=== PATIENT | male | born 1945 | race Caucasian/White ===

== ENCOUNTER → 2017-01-04 | Outpatient (REF) | payer OTHER ==
[~2017-01-04] MED LIST: ASPI-586 PO; ATOR80TA PO; CTLP20T PO
[2017-01-04 11:25] LABS: BASOPHILS % (AUTO) 0 % (0-2); EOSINOPHILS # (AUTO) 0.1 10^3uL; EOSINOPHILS % (AUTO) 1 % (0-4); LYMPHOCYTES # (AUTO) 2.4 X10^3; MEAN CORPUSCULAR HEMOGLOBIN 32.4 PG (26.0-34.0); MEAN CORPUSCULAR HGB CONC 33.8 g/dL (31.0-37.0); MEAN CORPUSCULAR VOLUME 96 FL (80-100); MEAN PLATELET VOLUME 12.4 FL (6.0-9.5); MONOCYTES % (AUTO) 13 % (3-11); NEUTROPHILS # (AUTO) 4.4 X10^3; NEUTROPHILS % (AUTO) 56 % (51-67); PLATELET COUNT 168 10^3uL (150-450); WHITE BLOOD COUNT 7.95 10^3uL (4.0-11.0)
[2017-01-04 11:44] LABS: ALBUMIN 4.1 g/dL (3.4-5.0); ANION GAP 15.1 MEQ/L (3-15); CALCULATED IONIZED CALCIUM 4.1 mg/dL (3.8-4.6); TOTAL PROTEIN 7.3 g/dL (6.4-8.5)
== END ==
LOC: LAB 11:01
PROVIDERS: ATTEND Family Medicine
DX: Z00.00 Encounter for general adult medical examination without abnormal findings (principal); I95.1 Orthostatic hypotension; I65.23 Occlusion and stenosis of bilateral carotid arteries
CPT/HCPCS: 80053; 80061; 85025